=== PATIENT | male | born 1950 | race Caucasian/White ===

== ENCOUNTER 2023-08-15 02:44 | Outpatient (CLI) | payer MEDICARE | END 2023-08-15 02:45 | disposition critical access hospital (66) | LOC: EMS 02:44 | DX: R06.02 Shortness of breath (principal); R00.0 Tachycardia, unspecified | CPT/HCPCS: A0425; A0427 ==

== ENCOUNTER 2023-08-15 03:23 | Emergency (ER) | payer MEDICARE ==
--- NOTE | 2023-08-15 03:28 | ED Physician Documentation ---
History of Present Illness - Stated complaint Stated Complaint: RAPID HR - History obtained from History obtained from: Patient, EMS - Additonal information Additional information: BIBA. HPI from EMS as well as patient. Patient noted rapid palpitations since this mid-afternoon, gradual onset but gradually increasing in frequency, rapidity and persistence. No exacerbating nor ameliorating factors except much improved after he was given 15mg IV diltiazem by EMS. Prior to EMS arrival, patient also took extra dose of his daily metoprolol Medications include metoprolol and xarelto for atrial fibrillation. He has a PPM. Denies any chest pain, dyspnea. After the diltiazem, his symptoms have resolved and he presents asymptomatic. Review of Systems Constitutional: denies: Fever, Chills, Sweats Cardiac: reports: Palpitations, Pedal edema (equal BLE and chronic, mild). denies: Chest pain / pressure, Calf pain Respiratory: denies: Dyspnea, Cough, Wheezing GI: denies: Abdominal Pain, Abdominal Swelling, Nausea, Vomiting, Constipation, Diarrhea PD PAST MEDICAL HISTORY - Past Medical History Past Medical History: Yes Cardiovascular: Congestive heart failure, Hypertension, Coronary artery disease, [place] - Present Medications Home Medications: Ambulatory Orders Medication Instructions Recorded Confirmed Ondansetron Odt [Zofran] 4 mg TL Q6H PRN #14 tablet 08/15/23 - Allergies Allergies/Adverse Reactions: Allergies Allergy/AdvReac Type Severity Reaction Status Date / Time No Known Drug Allergies Allergy Verified 08/15/23 03:40 PD ED PE NORMAL - Vitals Vital signs reviewed: Yes - General General: Alert and oriented X 3, No acute distress, Well developed/nourished - HEENT HEENT: Moist mucous membranes - Neck Neck: Supple, no meningeal sign - Cardiac Cardiac: No murmur, No gallop, No rub - Respiratory Respiratory: No respiratory distress, Clear bilaterally Results - Vitals Vitals: Vital Signs - 24 hr 08/15/23 06:13 Heart Rate 72 Respiratory 16 Rate Blood Pressure 118/93 H O2 Saturation 98 Oxygen O2 Source Room air - EKG (time done) No standard instances EKG releavant findings:: EKG personally interpreted by author of this note. Relevant findings are: Rate: Rate (enter#) (83) Rhythm: Other (some paced beats, others are atrial fibrillation; flutter waves seen (V1, V2)) [place]: LAD Intervals: Wide QRS Ischemia: Normal ST segments, Q waves (II, III, aVF). No: Hyperacute T waves - Labs Labs: Laboratory Tests 08/15/23 08/15/23 03:39 03:39 WBC 6.1 RBC 4.39 L Hgb 14.2 Hct 42.3 MCV 96.4 H MCH 32.3 H MCHC 33.6 RDW 13.2 Plt Count 154 MPV 10.8 Neut # (Auto) 3.8 Lymph # (Auto) 1.7 [place] # (Auto) 0.4 Eos # (Auto) 0.1 Baso # (Auto) 0.1 Absolute Nucleated RBC 0.00 Nucleated RBC % 0.0 Sodium 136 Potassium 4.3 Chloride 105 Carbon Dioxide 25 Anion Gap 6.0 BUN 17 Creatinine 1.0 Estimated GFR (MDRD) 74 L Glucose 115 H Calcium 9.4 Total Bilirubin 0.9 AST 66 H ALT 53 Alkaline Phosphatase 85 Troponin I High Sens 21.1 H* Total Protein 6.7 Albumin 4.0 Globulin 2.7 Albumin/Globulin Ratio 1.5 Lipase 12 - Rads (name of study) chest xray Relevant Findings:: Prelim report reviewed, See rad report PD Medical Decision Making - ED course Complexity details: reviewed results, re-evaluated patient, considered differential, d/w patient ED course: No concerning nor diagnostic findings on tonight's tests (CBC, ER abdominal panel). Minimally elevated hs-cTn, not to an extent that warrants further ED observation nor testing. He is in NAD; cxr suggests possible mild fluid overload, but with no pulmonary distress and unremarkable lung exam, this can be pursued in outpatient setting. Results reviewed with patient, advised to follow up with PCP , next available appointment, for reevaluation. Departure - Departure Disposition: Home, Self Care Clinical Impression: Palpitations Condition: Good Instructions: ED Afib Prescriptions: Ondansetron Odt [Zofran] 4 mg TL Q6H PRN #14 tablet PRN Reason: Nausea / Vomiting Comments: There were no concerning nor diagnostic findings on tonight's tests. The chest xray has findings that suggest mild congestive heart failure, but this can be reevaluated by your primary care provider. You should contact your primary care provider this morning when the office opens to arrange for next available appointment for reevaluation. Discharge Date/Time: 08/15/23 06:36
[2023-08-15 03:43] LABS: BASOPHILS # (AUTO) 0.1 10^3/uL (0.0-0.1); BASOPHILS % (AUTO) 0.8 %; EOSINOPHILS # (AUTO) 0.1 10^3/uL (0.0-0.7); EOSINOPHILS % (AUTO) 2.1 %; HCT - HEMATOCRIT 42.3 % (42.0-52.0); HGB - HEMOGLOBIN 14.2 g/dL (14.0-18.0); LYMPHOCYTES # (AUTO) 1.7 10^3/uL (1.5-3.5); LYMPHOCYTES % (AUTO) 27.5 %; MEAN CORPUSCULAR HEMOGLOBIN 32.3 pg (27.0-31.0); MEAN CORPUSCULAR HGB CONC 33.6 g/dL (32.0-36.0); MEAN CORPUSCULAR VOLUME 96.4 fL (80.0-94.0); MEAN PLATELET VOLUME 10.8 fL (7.4-11.4); MONOCYTES # (AUTO) 0.4 10^3/uL (0.0-1.0); MONOCYTES % (AUTO) 6.4 %; NEUTROPHILS # (AUTO) 3.8 10^3/uL (1.5-6.6); NEUTROPHILS % (AUTO) 62.7 %; PLT - PLATELET COUNT 154 10^3/uL (130-450); RED BLOOD COUNT 4.39 10^6/uL (4.70-6.10); RED CELL DISTRIBUTION WIDTH 13.2 % (12.0-15.0); WHITE BLOOD COUNT 6.1 x10^3/uL (4.8-10.8)
[2023-08-15 04:00] LABS: ALBUMIN/GLOBULIN RATIO 1.5 (1.0-2.2); BILIRUBIN,TOTAL 0.9 mg/dL (0.2-1.0); CALCIUM 9.4 mg/dL (8.5-10.3); POTASSIUM 4.3 mmol/L (3.5-4.5); TOTAL PROTEIN 6.7 g/dL (6.4-8.9)
[2023-08-15 04:01] VITALS: O2SAT 98
[2023-08-15 04:16] LABS: TROPONIN I HIGH SENSITIVITY 21.1 ng/L (2.3-19.7)
[2023-08-15] MEDS: ONDANSETRON 4 MG/2 ML VIAL IVP STA (04:35)
[2023-08-15] MEDS ORDERED: ONDANSETRON ODT 4 MG Prepack 2 TL PRN (06:14)
[2023-08-15 06:16] VITALS: BP 118/93
--- NOTE | 2023-08-15 08:18 | XRAY Report ---
PROCEDURE: Chest 1V INDICATIONS: palpitations TECHNIQUE: One view of the chest was acquired. COMPARISON: None. FINDINGS: Surgical changes and devices: Left chest wall pacemaker lead is in the region of right ventricle.. Lungs and pleura: Pulmonary vascular congestion is seen. Blunting of right costophrenic angle is also noted suggestive of trace right pleural effusion. There is pulmonary edema. Superimposed the bilater al patchy infiltrate/atelectasis cannot be entirely excluded. No gross pneumothorax. Mediastinum: Me diastinal contours appear normal. Heart size is normal. Bones and chest wall: No suspicious bony lesions. Overlying soft tissues appear unremarkable. IMPRESSION: Overall finding is suggestive of CHF. Superimposed bilateral patchy infiltrates cannot be entirely ex cluded. Clinical correlation and follow-up is recommended. Findings are concordant with preliminary interpretation provided by [facility]. Reviewed by: Luis Miguel Regalado MD on 08/15/2023 8:17 AM PDT Approved by: Luis Miguel Regalado MD on 08/15/2023 8:17 AM PDT Station ID: [id number]
== END 2023-08-15 06:36 | disposition home or self-care (01) ==
LOC: EDBD → ED 03:23
DX: R00.2 Palpitations (principal); I48.91 Unspecified atrial fibrillation; Z79.01 Long term (current) use of anticoagulants; I11.0 Hypertensive heart disease with heart failure; I50.9 Heart failure, unspecified
CPT/HCPCS: 36415; 80053; 83690; 84484; 85025; 93005; 96374; 99284